=== PATIENT | female | born 1985 ===

== ENCOUNTER 2017-04-23 10:10 | Observation (INO) | payer MEDICAID ==
[2017-04-23 10:20] VITALS: BP 118/70; PULSE 87; RESP 18; TEMP 98.5; O2SAT 100
[2017-04-23] MEDS ORDERED: Sodium Chloride 0.9% 1,000 ML IV STA (11:08)
--- NOTE | 2017-04-23 11:13 | ED PDOC ---
HPI: General Adult Time Seen by Provider: 04/23/17 10:25 Chief Complaint (Nursing): Headache History Per: Patient Additional Complaint(s): Pt. states for the past 2-3 days she's had a gradual onset bitemporal headache ( R>L) which has been constant. Headache has been associated with light sensitivity and multiple episodes of non-bloody vomiting. Reports that she has a long hx of migraines. She began to have migraines at the age of 9 consistently until she was 26 when headaches began to subside spontaneously. Reports that this morning while she was taking a cold shower she began to feel feverish. She took her temperature which was 101.7 and she took a Naproxen for her headache. Denies neck pain/stiffness, rash, head injury, LOC, abdominal pain , hematemesis, chest pain. Past Medical History Reviewed: Historical Data, Nursing Documentation, Vital Signs Vital Signs: Last Vital Signs Temp 98.5 F 04/23/17 10:19 Pulse 87 04/23/17 10:19 Resp 18 04/23/17 10:19 BP 118/70 04/23/17 10:19 Pulse Ox 100 04/23/17 12:51 - Medical History PMH: Anxiety, Post Traumatic Stress Disorder - Family History Family History: States: No Known Family Hx - Immunization History Hx Tetanus Toxoid Vaccination: No Hx Influenza Vaccination: No Hx Pneumococcal Vaccination: No - Allergies Allergies/Adverse Reactions: Allergies Allergy/AdvReac Type Severity Reaction Status Date / Time lamotrigine [From Lamictal] Allergy URTICARIA Verified 04/23/17 10:32 Review of Systems ROS Statement: Except As Marked, All Systems Reviewed And Found Negative Constitutional: Positive for: Fever Gastrointestinal: Positive for: Nausea, Vomiting Neurological: Positive for: Headache Physical Exam - Reviewed Nursing Documentation Reviewed: Yes Vital Signs Reviewed: Yes - Physical Exam Appears: Positive for: Well, Non-toxic, No Acute Distress Head Exam: Positive for: ATRAUMATIC, NORMAL INSPECTION, NORMOCEPHALIC Skin: Positive for: Normal Color, Warm. Negative for: Rash Eye Exam: Positive for: EOMI, Normal appearance, PERRL ENT: Positive for: Normal ENT Inspection Neck: Positive for: Normal, Painless ROM, Supple. Negative for: Decreased ROM, Limited ROM Cardiovascular/Chest: Positive for: Regular Rate, Rhythm Respiratory: Positive for: CNT, Normal Breath Sounds Gastrointestinal/Abdominal: Positive for: Normal Exam, Bowel Sounds, Soft. Negative for: Tenderness Back: Positive for: Normal Inspection. Negative for: L CVA Tenderness, R CVA Tenderness Extremity: Positive for: Normal ROM Neurologic/Psych: Positive for: Alert, Oriented, Other (negative Kernig's and Brudzinski's test). Negative for: Aphasia, Facial Droop - Laboratory Results Result Diagrams: 04/23/17 12:19 04/23/17 12:19 - ECG O2 Sat by Pulse Oximetry: 100 - Progress ED Course And Treament: Labs ordered. Reglan 10mg IV, imitrex 6mg SC, IV NS bolus x 1 given. ED OBSERVATION Discharge: Yes Date of observation admission: 04/23/17 Time of observation admission: 11:23 - Observation admission statement Patient is being placed in observation because:: headache - Goals of Observation Goals of observation are:: pain control - Progress Note Progress Note: 04/23/17 11:23 Case d/w Dr. Simeon who agrees with plan and also recommends ordering CT head w /o contrast. CT head w/o contrast ordered. 04/23/17 12:50 On re-evaluation, pt. sleeping comfortably and easily arousable to verbal stimuli. Reports complete relief of headache. Labs reviewed. WBC: 9.1. Still pending CT. 04/23/17 14:57 On re-evaluation, pt. reports headache has not returned. Disposition - Clinical Impression Clinical Impression: Acute headache - Patient ED Disposition Is Patient to be Admitted: No - Disposition Disposition: Routine/Home Disposition Time: 14:58 Condition: IMPROVED
[2017-04-23 11:34] LABS: SQUAMOUS EPITHIAL 3 /hpf (0-5); URINE BILIRUBIN NEGATIVE (NEGATIVE); URINE BLOOD NEGATIVE (NEGATIVE); URINE CLARITY SLIGHTY-CLOUDY (Clear); URINE COLOR YELLOW (YELLOW); URINE GLUCOSE (UA) NEG (Normal); URINE LEUKOCYTE ESTERASE NEG Leu/uL (Negative); URINE NITRATE NEGATIVE (NEGATIVE); URINE PROTEIN NEGATIVE (NEGATIVE); URINE UROBILINOGEN 0.2-1.0 mg/dL (0.2-1.0)
[2017-04-23 12:23] LABS: BASO # 0.1 K/uL (0.0-0.2); BASO % 1.1 % (0.0-2.0); EOS # 0.2 K/uL (0.0-0.7); EOS % 1.7 % (0.0-4.0); HEMOGLOBIN 13.1 g/dL (12.0-16.0); LYMPH # 2.6 K/uL (1.0-4.3); LYMPH % 28.7 % (20.0-40.0); MEAN CELL VOLUME 84.4 fl (81.0-99.0); MEAN CORPUSCULAR HEMOGLOBIN 27.5 pg (27.0-31.0); MEAN CORPUSCULAR HGB CONC 32.6 g/dL (33.0-37.0); MEAN PLATELET VOLUME 7.9 fl (7.2-11.7); MONO # 0.7 K/uL (0.0-0.8); MONO % 7.3 % (0.0-10.0); NEUT # 5.6 K/uL (1.8-7.0); NEUT % 61.2 % (50.0-75.0); RBC 4.77 Mil/uL (3.80-5.20); RED CELL DISTRIBUTION WIDTH 13.8 % (11.5-14.5); WHITE BLOOD COUNT 9.1 K/uL (4.8-10.8)
[2017-04-23 12:34] LABS: ALB/GLOB RATIO 1.5 (1.0-2.1); ALBUMIN 4.5 g/dL (3.5-5.0); ALT/SGPT 51 U/L (9-52); AST/SGOT 26 U/L (14-36); BLOOD UREA NITROGEN 12 mg/dl (7-17); CALCIUM 9.5 mg/dL (8.4-10.2); GFR AFRICAN-AMERICAN > 60; GFR NON-AFRICAN AMERICAN > 60
--- NOTE | 2017-04-23 13:59 | CT ---
PROCEDURE: CT HEAD WITHOUT CONTRAST. HISTORY: headache COMPARISON: None available. TECHNIQUE: Axial computed tomography images were obtained through the head/brain without intravenous contrast. Coronal and sagittal reconstructed images. Radiation dose: Total exam DLP = 795.28 mGy-cm. This CT exam was performed using one or more of the following dose reduction techniques: Automated exposure control, adjustment of the mA and/or kV according to patient size, and/or use of iterative reconstruction technique. FINDINGS: HEMORRHAGE: No intracranial hemorrhage. BRAIN: No mass effect or edema. No atrophy or chronic microvascular ischemic changes. VENTRICLES: Unremarkable. No hydrocephalus. CALVARIUM: Unremarkable. PARANASAL SINUSES: Unremarkable as visualized. No significant inflammatory changes. MASTOID AIR CELLS: Unremarkable as visualized. No inflammatory changes. OTHER FINDINGS: None. IMPRESSION: No acute intracranial abnormalities. No significant findings to account for the clinical presentation.
== END 2017-04-23 14:58 | disposition home or self-care (01) ==
LOC: H.ER 10:10 → H.EROBSV 11:14
PROVIDERS: ADMIT Emergency Medicine; ATTEND Emergency Medicine
DX: R51 Headache (principal); F41.9 Anxiety disorder, unspecified; F43.10 Post-traumatic stress disorder, unspecified
CPT/HCPCS: 36415; 70450; 80053; 81003; 81025; 85025; 87040; 96372; 99284; G0378; J2765; J3030; J7040

== ENCOUNTER 2017-11-01 13:36 | Inpatient (IN) | payer MEDICAID, OTHER ==
[2017-11-01 14:02] VITALS: O2SAT 100
--- NOTE | 2017-11-01 15:24 | ED PDOC ---
HPI: Psych/Substance Abuse Time Seen by Provider: 11/01/17 14:19 Chief Complaint (Nursing): Psychiatric Evaluation Chief Complaint (Provider): Psychiatric Evaluation History Per: Patient History/Exam Limitations: no limitations Onset/Duration Of Symptoms: Gradual Current Symptoms Are (Timing): Still Present Additional Complaint(s): 32 year old female with medical history of PTSD and anxiety, who presents to the emergency department for a crisis evaluation of depression and suicidal ideation without plan. Patient reported being compliant with psych medications but does not feel any improvement. She denied any homicidal ideation, audio/ visual hallucinations, drug or alcohol use but has history of attempted suicides in the past. PMD: none provided Past Medical History Reviewed: Historical Data, Nursing Documentation, Vital Signs Vital Signs: Last Vital Signs Temp 98.8 F 11/01/17 13:58 Pulse 102 H 11/01/17 13:58 Resp 20 11/01/17 13:58 BP 131/77 11/01/17 13:58 Pulse Ox 100 11/01/17 13:58 - Medical History PMH: Anxiety, Post Traumatic Stress Disorder - Surgical History Surgical History: No Surg Hx - Family History Family History: States: Unknown Family Hx - Social History Current smoker - smoking cessation education provided: No Ex-Smoker (has not smoked in the last 12 months): No Alcohol: None Drugs: Denies - Immunization History Hx Tetanus Toxoid Vaccination: No Hx Influenza Vaccination: No Hx Pneumococcal Vaccination: No - Home Medications Home Medications: Ambulatory Orders Medication Instructions Recorded Cholecalciferol [Vitamin D 1000 IU] 1,000 unit PO DAILY 11/01/17 Clonazepam [Clonazepam] 0.25 mg PO BID 11/01/17 Melatonin [Melatonin] 1 tab PO HS PRN 11/01/17 Venlafaxine [Effexor XR] 37.5 mg PO DAILY 11/01/17 - Allergies Allergies/Adverse Reactions: Allergies Allergy/AdvReac Type Severity Reaction Status Date / Time lamotrigine [From Lamictal] Allergy URTICARIA Verified 11/01/17 13:58 Review of Systems ROS Statement: Except As Marked, All Systems Reviewed And Found Negative Psych: Positive for: Depression, Suicidal ideation. Negative for: Other ( homicidal ideation, audio or visual hallucination) Physical Exam - Reviewed Nursing Documentation Reviewed: Yes Vital Signs Reviewed: Yes - Physical Exam Appears: Positive for: Well, Non-toxic, No Acute Distress Head Exam: Positive for: ATRAUMATIC, NORMAL INSPECTION, NORMOCEPHALIC Skin: Positive for: Normal Color Cardiovascular/Chest: Positive for: Regular Rate, Rhythm, Chest Non Tender Respiratory: Positive for: Normal Breath Sounds. Negative for: Decreased Breath Sounds, Respiratory Distress Gastrointestinal/Abdominal: Positive for: Normal Exam, Soft. Negative for: Tenderness Extremity: Positive for: Normal ROM (upper/lower) Neurologic/Psych: Positive for: Alert (x3), Oriented. Negative for: Motor/ Sensory Deficits - Laboratory Results Result Diagrams: 11/01/17 16:03 11/01/17 16:03 - ECG O2 Sat by Pulse Oximetry: 100 (RA) Pulse Ox Interpretation: Normal - Radiology X-Ray: Viewed By Me, Read By Radiologist X-Ray Interpretation: No Acute Disease Medical Decision Making Medical Decision Making: Initial Impression: Crisis evaluation for suicidal ideation Initial Plan: * Alcohol serum * CMP * Drug screen, urine * Urine * Urine dipstick * CBC * CXR * UA _ Time: 1613 --Upon crisis evaluation, patient is medically stable and requires no further treatment in the ED at this time. Patient will be admitted by Dr. Miller. Counseling was provided and all questions were answered regarding diagnosis. There is agreement to discharge plan. Return if symptoms persist or worsen. Clinical Impression: Depression Scribe Attestation: Documented by Dianna Florentino, acting as a scribe for Rossy Ambrosio PA-C. Provider Scribe Attestation: All medical record entries made by the Scribe were at my direction and personally dictated by me. I have reviewed the chart and agree that the record accurately reflects my personal performance of the history, physical exam, medical decision making, and the department course for this patient. I have also personally directed, reviewed, and agree with the discharge instructions and disposition. Disposition - Clinical Impression Clinical Impression: Depression - Patient ED Disposition Is Patient to be Admitted: Yes - Disposition Disposition Time: 05:40 Condition: STABLE
[2017-11-01 16:08] LABS: BASO # 0.1 K/uL (0.0-0.2); BASO % 0.4 % (0.0-2.0); EOS % 0.4 % (0.0-4.0); HEMOGLOBIN 14.1 g/dL (12.0-16.0); LYMPH # 2.3 K/uL (1.0-4.3); MEAN CELL VOLUME 87.1 fl (81.0-99.0); MEAN CORPUSCULAR HEMOGLOBIN 29.4 pg (27.0-31.0); MEAN CORPUSCULAR HGB CONC 33.8 g/dL (33.0-37.0); MONO # 0.9 K/uL (0.0-0.8); MONO % 7.6 % (0.0-10.0); NEUT # 8.3 K/uL (1.8-7.0); NEUT % 71.6 % (50.0-75.0); RBC 4.8 Mil/uL (3.80-5.20); RED CELL DISTRIBUTION WIDTH 12.7 % (11.5-14.5); WHITE BLOOD COUNT 11.6 K/uL (4.8-10.8)
[2017-11-01 16:18] LABS: ALB/GLOB RATIO 1.3 (1.0-2.1); ALBUMIN 4.9 g/dL (3.5-5.0); ALT/SGPT 91 U/L (9-52); AST/SGOT 75 U/L (14-36); BLOOD UREA NITROGEN 13 mg/dl (7-17); GFR AFRICAN-AMERICAN > 60; GFR NON-AFRICAN AMERICAN > 60
[2017-11-01 16:26] LABS: BARBITURATES, UR NEGATIVE (NEGATIVE); BENZODIAZEPINES, UR NEGATIVE (NEGATIVE); OPIATES, UR NEGATIVE (NEGATIVE); PHENCYCLIDINE, UR NEGATIVE (NEGATIVE)
[2017-11-01 16:34] LABS: SQUAMOUS EPITHIAL 38 /hpf (0-5); URINE BACTERIA OCC (<OCC); URINE BILIRUBIN NEGATIVE (NEGATIVE); URINE BLOOD SMALL (NEGATIVE); URINE CLARITY CLOUDY (Clear); URINE COLOR AMBER (YELLOW); URINE GLUCOSE (UA) NEG (Normal); URINE LEUKOCYTE ESTERASE SMALL Leu/uL (Negative); URINE NITRATE NEGATIVE (NEGATIVE); URINE PROTEIN 30 mg/dL (NEGATIVE)
--- NOTE | 2017-11-01 17:11 | RAD ---
HISTORY: admit COMPARISON: No prior. TECHNIQUE: Chest PA and lateral FINDINGS: LUNGS: No active pulmonary disease. PLEURA: No significant pleural effusion identified. No pneumothorax apparent. CARDIOVASCULAR: Normal. OSSEOUS STRUCTURES: No significant abnormalities. VISUALIZED UPPER ABDOMEN: Normal. OTHER FINDINGS: None. IMPRESSION: No active disease.
--- NOTE | 2017-11-01 19:44 | PCM.BM ---
Treatment Plan Problems - Problems identified on initial assessmt Mood Improvement Date Initiated: 11/01/17 Time Initiated: 19:43 Assessment reference: NA Status: Active Suicidal ideas Date Initiated: 11/02/17 Time Initiated: 00:22 Assessment reference: NA Status: Active Ineffective Coping Date Initiated: 11/02/17 Time Initiated: 00:22 Assessment reference: NA Status: Active Treatment assets and liabiliti Patient Assests: adapts well, insightful, self-reliant, ADL independent Patient Liabilities: relationship conflicts - Milieu Protocol Maintain good personal hygiene: daily Encourage regular showers, daily Assist patient to perform ADL's, every shift Remind patient to perform daily oral care Conduct patient checks and document Observation sheet: Q15 minutes Maintain personal safety: every shift Educate patient to report safety concerns to staff, every shift Monitor environment for contraband/sharps Medication safety: Monitor for expected outcome, potential side effects: every shift, Assess barriers to learning: daily, Assess readiness for medication education: every shift
[2017-11-01] MEDS ORDERED: Alum-Mag Hydrox-Simethicone Susp (30 mL) PO PRN (19:45)
[2017-11-01] MEDS ORDERED: DiphenhydrAMINE 50 mg/ml Inj IM PRN (19:45)
[2017-11-01] MEDS ORDERED: Magnesium Hydroxide Susp 30 ml UD PO PRN (19:45)
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
[2017-11-02 07:07] LABS: T4 12.5 ug/dl (5.5-11.0)
[2017-11-02 09:22] VITALS: RESP 18
[2017-11-02] MEDS ORDERED: Venlafaxine 37.5 mg ER Cap PO SCH (13:13)
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
[2017-11-03 09:18] VITALS: BP 133/79; PULSE 89; TEMP 96.9
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
== END 2017-11-03 11:50 | disposition home or self-care (01) | DRG 881 ==
LOC: H.ER 13:36 → H.ERHOLD 17:54 → H.PSYCH 18:59
PROVIDERS: ADMIT Psychiatry & Neurology Psychiatry; ATTEND Psychiatry & Neurology Psychiatry
PROC: GZHZZZZ Group Psychotherapy (ICD-10-PCS; principal; 2017-11-01)
PROC: GZ56ZZZ Individual Psychotherapy, Supportive (ICD-10-PCS; 2017-11-01)
DX: F32.9 Major depressive disorder, single episode, unspecified (principal); R45.851 Suicidal ideations; F43.10 Post-traumatic stress disorder, unspecified; F41.9 Anxiety disorder, unspecified; Z63.0 Problems in relationship with spouse or partner